=== PATIENT | male | born 1960 | race Caucasian/White ===

== ENCOUNTER 2021-06-03 07:44 | Outpatient (CLI) | payer OTHER, SELFPAY ==
[2021-06-03 08:13] LABS: Hemoglobin A1C 6.9 % (<5.7)
[2021-06-03 08:15] LABS: Alanine Aminotransferase 16 U/L (4-50); Albumin Level 4.8 g/dL (3.5-5.1); Alkaline Phosphatase 61 U/L (38-126); Anion Gap 7 mmol/L (8-16); Aspartate Amino Transferase 28 U/L (17-59); Bilirubin,Total 0.6 mg/dL (0.2-1.3); Blood Urea Nitrogen 15 mg/dL (9-20); Calcium 9.7 mg/dL (8.4-10.2); Carbon Dioxide 30 mmol/L (22-30); Chloride 103 mmol/L (98-107); Cholesterol 128 mg/dL (0-200); Estimated Glomerular Filt Rate 52; Glucose 123 mg/dL (65-110); HDL Direct 54 mg/dL; Potassium 4.9 mmol/L (3.4-5.0); Sodium 140 mmol/L (137-145); Triglycerides 134 mg/dL (<150)
[2021-06-03 08:19] LABS: Hematocrit 43.7 % (42.0-52.0); Hemoglobin 14.3 g/dL (14.0-18.0); Mean Corpuscular HGB Conc 32.7 g/dl (32-36); Mean Corpuscular Hemoglobin 29.9 pg (26-34); Mean Corpuscular Volume 91.2 fl (80-100); Mean Platelet Volume 9.3 fl (7.4-10.4); Platelet Count Result 157 k/mm3 (150-375); Red Blood Count 4.79 M/mm3 (4.6-6.20); Red Cell Distribution Width 12.5 % (11.5-14.5); White Blood Count 5.8 K/mm3 (4.5-10.0)
[2021-06-03 08:27] LABS: LDL Cholesterol Direct 42 mg/dL
[2021-06-03 08:47] LABS: Prostate Specific Antigen 2.1 ng/mL (< OR = 4.0)
[2021-06-03 09:21] LABS: Folic Acid 14.5 ng/mL (2.76->20)
== END 2021-06-03 07:45 | disposition home or self-care (01) ==
PROVIDERS: PCP Physician Assistant; Visit Provider Physician Assistant
DX: E11.9 Type 2 diabetes mellitus without complications (principal); Z12.5 Encounter for screening for malignant neoplasm of prostate; R53.83 Other fatigue
CPT/HCPCS: 36415; 80053; 80061; 82607; 82746; 83036; 84153; 84443; 85027; G0103

== ENCOUNTER 2021-11-22 07:04 | Outpatient (CLI) | payer OTHER, SELFPAY ==
[2021-11-22 07:47] LABS: Alanine Aminotransferase 25 U/L (4-50); Albumin Level 4.7 g/dL (3.5-5.1); Alkaline Phosphatase 99 U/L (38-126); Anion Gap 8 mmol/L (8-16); Aspartate Amino Transferase 27 U/L (17-59); Bilirubin,Total 0.5 mg/dL (0.2-1.3); Blood Urea Nitrogen 22 mg/dL (9-20); Calcium 9.1 mg/dL (8.4-10.2); Carbon Dioxide 27 mmol/L (22-30); Chloride 102 mmol/L (98-107); Estimated Glomerular Filt Rate 56; Glucose 124 mg/dL (65-110); Potassium 4.3 mmol/L (3.4-5.0); Sodium 137 mmol/L (137-145)
[2021-11-22 07:59] LABS: Creatinine Urine 58.1 mg/dL
[2021-11-22 08:03] LABS: Microalbumin Urine Random 11.6 mg/L (0-16.7)
[2021-11-22 08:09] LABS: Hemoglobin A1C 7.1 % (<5.7)
[2021-11-22 08:44] LABS: Folic Acid 9.3 ng/mL (2.76->20); Vitamin B12 > 1000.0 pg/mL (239-931)
== END 2021-11-22 07:05 | disposition home or self-care (01) ==
PROVIDERS: PCP Physician Assistant; Visit Provider Physician Assistant
DX: E53.8 Deficiency of other specified B group vitamins (principal); E11.9 Type 2 diabetes mellitus without complications
CPT/HCPCS: 36415; 80053; 82043; 82607; 82746; 83036

== ENCOUNTER 2022-01-09 00:32 | Day surgery (SDC) | payer OTHER, SELFPAY ==
[2021-12-28 14:40] VITALS: BMI 29.4
[2022-01-09 11:20] VITALS: BP 154/93; PULSE 93; RESP 16; TEMP 36.8; O2SAT 100
[2022-01-09] MEDS: LACTATED RINGERS 1,000 ML 150 ML IV CONT (11:29)
[2022-01-09 11:42] LABS: Glucose Point of Care 137 mg/dl (65-105)
--- NOTE | 2022-01-09 11:55 | P.PNAN_ITS ---
Anes - Initial Pre Proc Eval Procedure: Operation Date: 01/09/22 12:30 Proposed Procedures p Screening Colonoscopy - Yg Peters MD Date/Time: 01/09/22 11:55 Surgeon: Yg Peters MD Pre Op Diagnosis: neoplasm screening Patient Data Age: 61 Gender: M Height: 1.78 m Weight: 92.4 kg Last Vital Signs Temp 98.2 F 01/09/22 11:20 Pulse 93 01/09/22 11:20 Resp 16 01/09/22 11:20 BP 154/93 H 01/09/22 11:20 Pulse Ox 100 01/09/22 11:20 Allergies Allergy/AdvReac Type Severity Reaction Status Date / Time No Known Allergies Allergy Verified 01/09/22 11:19 Home Medications Medication Instructions Recorded Confirmed Type lisinopril 10 mg tablet 10 mg PO DAILY 11/12/20 01/09/22 History allopurinol 100 mg tablet 100 mg PO DAILY #90 tablet 12/09/21 01/09/22 Rx empagliflozin 25 mg tablet 25 mg PO DAILY #90 tablet 12/09/21 01/09/22 Rx fenofibrate 160 mg tablet 160 mg PO DAILY #90 tablet 12/09/21 01/09/22 Rx metformin 1,000 mg tablet 1,000 mg PO BID #180 tablet 12/09/21 01/09/22 Rx rosuvastatin 5 mg tablet 5 mg PO DAILY #90 tablet 12/09/21 01/09/22 Rx semaglutide 7 mg tablet 7 mg PO DAILY #90 tablet 12/09/21 01/09/22 Rx Laboratory Tests 01/09/22 11:31 POC Capillary Glucose 137 mg/dl H mg/dl (65-105) Patient hx anesthesia problems: none Family hx anesthesia problems: none Results Review: All pre-operative results and documents have been reviewed as part of the pre-operative evaluation. [facility] Past Medical History Medical History Diabetes type 2, controlled Family History Family History Grandparent Malignant neoplasm of prostate Social History Social History Smoking status: Never smoker Substance use: never Substance use type: does not use Living arrangements: with family Spiritual care concerns: No Anes - Eval Final PreProcedure Day of Procedure 01/09/22 11:55 Patient weight: overweight Heart: regular rate and rhythm Lungs: clear to auscultation Airway: Mallampati scale class II Neurological: alert and oriented Last oral intake: >/= 8 hours ASA classification: II Emergent: no Anesthetic plan: proceed Anesthesia type and monitoring: general GIVS and standard monitoring Results Review: All pre-operative results and documents have been reviewed as part of the pre-operative evaluation. Informed Consent: The patient's anesthetic plan and its attendant risks and benefits were discussed with the patient/family/POA. Questions were solicited and answers provided to the satisfaction of the patient/family/POA.
--- NOTE | 2022-01-09 11:56 | PM.HPGS ---
History of Present Illness History of Present Illness Consent: Risks, benefits, and alternatives have been discussed and questions answered. Patient agrees to proceed with procedure. Chief complaint: neoplasm screening Narrative: Saúl Graham is a 61 year old male here for screening colonoscopy, last one 10 years ago. Review of Systems Constitutional: Constitutional: Denies headache(s) and Denies weakness Eyes: Eyes: Denies blurry vision ENT: Reports Normal hearing present, Denies headache(s) and Denies neck pain Cardiovascular: Cardiovascular: Denies chest pain and Denies dyspnea Respiratory: Respiratory: Denies dyspnea Gastrointestinal: Gastrointestinal: Reports no additional gastrointestinal complaints Genitourinary: Genitourinary: Denies dysuria Musculoskeletal: Musculoskeletal: Denies neck pain Integumentary/Breasts: Skin/Breast: Denies dry skin Neurologic: Reports Normal hearing present, Denies headache(s) and Denies weakness Psychiatric: Psychiatric: Denies anxiety Endocrine: Endocrine: Denies change in body appearance Hematologic/Lymphatic: Hematologic/Lymphatic: Denies easy bleeding Allergic/Immunologic: Allergic/Immunologic: Denies urticaria PMF Past Medical History Medical History (Updated 01/09/22 @ 11:57 by Yg Peters MD) Colon cancer screening Diabetes type 2, controlled Family History Family History Grandparent Malignant neoplasm of prostate Social History Social History Smoking status: Never smoker Substance use: never Substance use type: does not use Living arrangements: with family Spiritual care concerns: No Meds Home Medications and Allergies Home Medications Medication Instructions Recorded Confirmed Type lisinopril 10 mg tablet 10 mg PO DAILY 11/12/20 01/09/22 History allopurinol 100 mg tablet 100 mg PO DAILY #90 tablet 12/09/21 01/09/22 Rx empagliflozin 25 mg tablet 25 mg PO DAILY #90 tablet 12/09/21 01/09/22 Rx fenofibrate 160 mg tablet 160 mg PO DAILY #90 tablet 12/09/21 01/09/22 Rx metformin 1,000 mg tablet 1,000 mg PO BID #180 tablet 12/09/21 01/09/22 Rx rosuvastatin 5 mg tablet 5 mg PO DAILY #90 tablet 12/09/21 01/09/22 Rx semaglutide 7 mg tablet 7 mg PO DAILY #90 tablet 12/09/21 01/09/22 Rx Allergies Allergy/AdvReac Type Severity Reaction Status Date / Time No Known Allergies Allergy Verified 01/09/22 11:19 Vital Signs Vital Signs - 24 hr 01/09/22 11:20 Temperature 98.2 F Pulse Rate 93 Respiratory Rate 16 Blood Pressure 154/93 H Pulse Oximetry 100 Exam Const: General: comfortable and no acute distress HENMT: General nose exam: Normal nares present Eyes: General: appearance normal, both eyes and all related structures Neck: Neck: no JVD Resp: Auscultation: clear to auscultation bilaterally Cardio: Rate: regular rate Rhythm: regular rhythm GI: Inspection: non-distended GI Palp: Yes Soft to palpation Skin: General skin exam: normal color Neuro: General: gait normal Speech: normal speech Extrem: General: normal to inspection Psych: Mental Status: mental status grossly normal Assessment and Plan Assessment and plan (1) Colon cancer screening: Code(s): Z12.11 - Encounter for screening for malignant neoplasm of colon Status: Acute Assessment and Plan: colonoscopy
[2022-01-09 12:19] VITALS: BP 106/74; PULSE 89; RESP 20; O2SAT 98
[2022-01-09 12:29] VITALS: BP 121/89; PULSE 94; RESP 20; O2SAT 99
[2022-01-09 12:39] VITALS: BP 137/85; PULSE 85; RESP 20; O2SAT 99
== END 2022-01-09 13:03 | disposition home or self-care (01) ==
PROVIDERS: PCP Physician Assistant; Visit Provider Internal Medicine Gastroenterology
PROC: 0DJD8ZZ Inspection of Lower Intestinal Tract, Via Natural or Artificial Opening Endoscopic (ICD-10-PCS; CPT 45378; principal; 2022-01-09 12:30)
DX: Z12.11 Encounter for screening for malignant neoplasm of colon (principal); D12.8 Benign neoplasm of rectum; K64.8 Other hemorrhoids; E11.9 Type 2 diabetes mellitus without complications; Z79.84 Long term (current) use of oral hypoglycemic drugs
CPT/HCPCS: 45385; 82948; 88305; J2704; J7120

== ENCOUNTER 2022-06-07 07:09 | Outpatient (CLI) | payer OTHER, SELFPAY ==
[2022-06-07 08:16] LABS: Hematocrit 42.9 % (42.0-52.0); Hemoglobin 14.2 g/dL (14.0-18.0); Mean Corpuscular HGB Conc 33.1 g/dl (32-36); Mean Corpuscular Volume 90.5 fl (80-100); Mean Platelet Volume 9.6 fl (7.4-10.4); Platelet Count Result 197 k/mm3 (150-375); Red Blood Count 4.74 M/mm3 (4.6-6.20); Red Cell Distribution Width 12.6 % (11.5-14.5); White Blood Count 6.1 K/mm3 (4.5-10.0)
[2022-06-07 08:17] LABS: Alanine Aminotransferase 14 U/L (6-50); Albumin Level 4.9 g/dL (3.5-5.1); Alkaline Phosphatase 75 U/L (38-126); Anion Gap 11 mmol/L (8-16); Aspartate Amino Transferase 23 U/L (17-59); Bilirubin,Total 0.5 mg/dL (0.2-1.3); Blood Urea Nitrogen 21 mg/dL (9-20); Calcium 9.9 mg/dL (8.4-10.2); Carbon Dioxide 28 mmol/L (22-30); Chloride 100 mmol/L (98-107); Cholesterol 129 mg/dL (0-200); Estimated Glomerular Filt Rate > 60; Glucose 112 mg/dL (65-110); HDL Direct 52 mg/dL; Hemoglobin A1C 7.3 % (<5.7); Potassium 4.4 mmol/L (3.4-5.0); Sodium 139 mmol/L (137-145); Triglycerides 203 mg/dL (<150)
[2022-06-07 08:28] LABS: LDL Cholesterol Direct 37 mg/dL
[2022-06-07 08:31] LABS: Creatinine Urine 86.7 mg/dL
[2022-06-07 08:36] LABS: MALB Creatinine Ratio 22.4 mg/g (0-30); Microalbumin Urine Random 19.4 mg/L (0-16.7)
== END 2022-06-07 07:10 | disposition home or self-care (01) ==
LOC: ANHLAB 07:10
PROVIDERS: PCP Physician Assistant; Visit Provider Physician Assistant
DX: R53.83 Other fatigue (principal); E11.9 Type 2 diabetes mellitus without complications; Z12.5 Encounter for screening for malignant neoplasm of prostate
CPT/HCPCS: 36415; 80053; 80061; 82043; 83036; 84153; 84443; 85027; G0103

== ENCOUNTER 2022-08-01 15:02 | Outpatient (CLI) | payer OTHER, SELFPAY ==
--- NOTE | ~2022-08-01 | CT_ITS ---
EXAMINATION: CT abdomen pelvis wo con DATE: 08/01/2022 15:21 INDICATION: Renal stones TECHNIQUE: Computed tomography (CT) of the abdomen and pelvis was performed without intravenous contr ast. The dose-length product was 881.10 mGy-cm. Automated exposure control and iterative reconstructi on technique were employed. COMPARISON: No prior studies for comparison. FINDINGS: Lung bases are unremarkable. Heart size normal. No significant pleural or pericardial effus ion. No significant vascular abnormality. No lymphadenopathy. There are multiple bilateral renal ston es. No left hydronephrosis or ureteral stone. There is a proximal right ureteral stone measuring 7 mm with moderate hydroureteronephrosis. There are bilateral inguinal hernias containing fat. Colonic di verticulosis without diverticulitis. The liver, spleen, pancreas, adrenal glands are unremarkable. There is a duodenal diverticulum. Prost ate gland is enlarged. Moderate lumbar spondylosis. No acute osseous abnormality. No free air or free fluid. IMPRESSION: 1. Proximal right ureteral stone at the L4 level measuring 7 mm with moderate hydronephrosis. 2: Bilateral nephrolithiasis. 3: Bilateral fat-containing inguinal hernias. 4: Duodenal diverticulum. Reviewed, dictated and finalized at location B. IMPRESSION: 1. Proximal right ureteral stone at the L4 level measuring 7 mm with moderate h ydronephrosis. 2: Bilateral nephrolithiasis. 3: Bilateral fat-containing inguinal hernias. 4: Duodenal diverticulum.
== END 2022-08-01 15:03 | disposition home or self-care (01) ==
PROVIDERS: PCP Physician Assistant; Visit Provider Physician Assistant
DX: N20.0 Calculus of kidney (principal); K40.90 Unilateral inguinal hernia, without obstruction or gangrene, not specified as recurrent; K57.10 Diverticulosis of small intestine without perforation or abscess without bleeding
CPT/HCPCS: 74176

== ENCOUNTER 2022-08-02 11:10 | Emergency (ER) | payer OTHER, SELFPAY ==
[2022-08-02 11:14] VITALS: BP 159/90; PULSE 96; RESP 14; TEMP 35.9; O2SAT 100
[2022-08-02 11:35] LABS: Basophils Percent Auto 0.4 % (0.2-1.2); Eosinophils Absolute Auto 0.1 K/mm3 (0-0.3); Eosinophils Percent Auto 1.6 % (0-4.4); Hematocrit 41.2 % (42.0-52.0); Hemoglobin 13.6 g/dL (14.0-18.0); Immature Granulocyte Absolute 0.09 K/mm3 (0.00-0.031); Immature Granulocyte Percent A 1.1 % (0-0.5); Lymphocytes Absolute Auto 1.74 K/mm3 (0.9-3.2); Lymphocytes Percent Auto 21.6 % (18.3-44.2); Mean Corpuscular Hemoglobin 29.4 pg (26-34); Mean Corpuscular Volume 89.2 fl (80-100); Monocytes Absolute Auto 0.6 K/mm3 (0.1-0.6); Monocytes Percent Auto 7.4 % (2.6-8.5); Neutrophils Absolute Auto 5.5 K/mm3 (1.3-6.7); Neutrophils Percent Auto 67.9 % (45.5-73.1); Platelet Count Result 284 k/mm3 (150-375); Red Blood Count 4.62 M/mm3 (4.6-6.20); Red Cell Distribution Width 12.3 % (11.5-14.5); White Blood Count 8.1 K/mm3 (4.5-10.0)
[2022-08-02 11:41] LABS: Add Urine Microscopic? YES; Appearance Urine Clear (Clear); Bilirubin Urine Negative (Negative); Blood Urine 2+ (Negative); Color Urine Yellow (Yellow); Glucose Urine UA 3+ mg/dL (Negative); Ketones Urine Negative (Negative); Leukocyte Esterase Ur Negative LEU/UL (Negative); Nitrate Urine Negative (Negative); Protein Urine Negative (Negative); Specific Grav Ur 1.018 (1.001-1.035); Urobilinogen Urine Negative mg/dL (<2.0); WBC Urine 0-3 /hpf
[2022-08-02 11:47] LABS: Alanine Aminotransferase 16 U/L (6-50); Alkaline Phosphatase 86 U/L (38-126); Anion Gap 18 mmol/L (8-16); Aspartate Amino Transferase 25 U/L (17-59); Bilirubin,Total 0.4 mg/dL (0.2-1.3); Blood Urea Nitrogen 31 mg/dL (9-20); Calcium 10.2 mg/dL (8.4-10.2); Carbon Dioxide 26 mmol/L (22-30); Chloride 99 mmol/L (98-107); Estimated CRCL calculation 33 ml/min; Estimated Glomerular Filt Rate 31; Glucose 114 mg/dL (65-110); Potassium 4.9 mmol/L (3.4-5.0); Sodium 143 mmol/L (137-145)
--- NOTE | 2022-08-02 12:43 | ED.GENADULT ---
HPI - General Adult General Chief complaint: Abdominal Pain Stated complaint: kidney stone Time Seen by Provider: 08/02/22 11:54 History of Present Illness HPI narrative: 62-year-old male with history of kidney stones with prior lithotripsy presents to the emergency department for evaluation of persistent right flank pain that has been ongoing for approximately the last 10 to 11 days. Patient did have follow-up with his primary care physician and had an outpatient CT scan confirming the a right ureteral calculi of 7 mm. Patient states he has had some intermittent pain but has been taking ibuprofen for pain control. Patient has not been taking Flomax. Patient states he has had some intermittent nausea and vomiting has had some decreased p.o. intake. Patient states he is still making urine to try to keep up on his fluid intake. Patient denies any other kidney issues. Related Data Home Medications Medication Instructions Recorded Confirmed lisinopril 10 mg tablet 10 mg PO DAILY 11/12/20 02/24/22 Allergies Allergy/AdvReac Type Severity Reaction Status Date / Time No Known Allergies Allergy Verified 08/02/22 11:44 Review of Systems Review of Systems: CONSTITUTIONAL: Denies fever, chills, or sweats. EYES: Denies visual changes, redness, or discharge. ENT: Denies rhinorrhea, congestion, sore throat, or otalgia. CARDIOVASCULAR: Denies chest pain, palpitations, or edema. RESPIRATORY: Denies cough or dyspnea. GASTROINTESTINAL: See HPI GENITOURINARY: Denies dysuria or hematuria. SKIN: Denies rash or itching. MUSCULOSKELETAL: Denies back pain, joint pain, or myalgia. NEUROLOGIC: Denies headache, numbness, or weakness. [facility] Past Medical History Medical History Colon cancer screening Diabetes type 2, controlled Family History Family History Grandparent Malignant neoplasm of prostate Social History Social History Smoking status: Never smoker Substance use: never Substance use type: does not use Spiritual care concerns: No Exam Narrative: APPEARANCE: Well appearing, no pain, no distress, well-nourished. HEAD: normocephalic, atraumatic. EYES: PERRLA/EOMI, conjunctivae clear. NOSE: Normal no drainage NECK: Supple. No adenopathy, no masses. RESPIRATORY: Airway patent, respirations nonlabored. Clear to auscultation bilaterally, no rales, rhonchi, wheezing. CARDIOVASCULAR: Regular rate and rhythm without murmurs rubs or gallops. ABDOMINAL: Soft, nontender, nondistended, normal bowel sounds MUSCULOSKELETAL: Mild right flank tenderness to palpation NEURO: Alert. Cranial nerves II through XII intact. Grossly intact SKIN: Warm, dry. Normal Color Course Course Emergency Course: Patient was treated with IV fluids due to very mild increase and his creatinine. Patient's baseline creatinine seems to be between 1.4 and 1.2. Today's was 2.2. Patient does report decreased p.o. intake. Patient was rehydrated in the emergency department. Patient denies any complaints at this time. No evidence of urinary tract infection. Patient will be discharged with Flomax and some medications for pain control. Patient also be provided urology follow-up. Vital Signs Vital signs: Vital Signs Temperature 96.7 F L 08/02/22 11:14 Pulse Rate 96 08/02/22 11:14 Respiratory Rate 14 08/02/22 11:14 Blood Pressure 159/90 H 08/02/22 11:14 Pulse Oximetry 100 08/02/22 11:14 Oxygen Delivery Room Air 08/02/22 11:14 Temperature 96.7 F L 08/02/22 11:14 Pulse Rate 96 08/02/22 11:14 Respiratory Rate 14 08/02/22 11:14 Blood Pressure 159/90 H 08/02/22 11:14 Pulse Oximetry 100 08/02/22 11:14 Oxygen Delivery Room Air 08/02/22 11:14 Medical Decision Making Vital Signs Vital Signs: Vital Signs Temperature 96.7 F L 08/02/22
[2022-08-02] MEDS: SODIUM CHLORIDE 0.9% IV 1,000 ML 999 ML IV CONT (12:49)
[2022-08-02] MEDS: TAMSULOSIN HCL 0.4 MG CAPSULE PO (13:07)
== END 2022-08-02 14:07 | disposition home or self-care (01) ==
PROVIDERS: Emergency Medicine; Emergency Provider Emergency Medicine; PCP Physician Assistant
DX: N20.1 Calculus of ureter (principal); E11.9 Type 2 diabetes mellitus without complications
CPT/HCPCS: 36415; 80053; 81001; 85025; 96360; 99283; A9270; J7030

== ENCOUNTER 2022-08-03 14:38 | Outpatient (CLI) | payer OTHER, SELFPAY ==
--- NOTE | ~2022-08-03 | XR_ITS ---
XR abdomen/kub 1V 08/03/2022 15:03 Indication: Right ureteral stone Procedure: KUB Comparison: No prior studies for comparison. Findings: There are multiple bilateral renal stones. There is calcification overlying the right sacro iliac joint, suspicious for ureteral stone. Bowel gas pattern is nonobstructive. No acute osseous abn ormality. Impression: 1: Possible distal right ureteral stone overlying the SI joint. 2: Bilateral nephrolithiasis. Reviewed, dictated and finalized at location B. Impression: 1: Possible distal right ureteral stone overlying the SI joint. 2: Bilateral nephrolithiasis.
== END 2022-08-03 14:39 | disposition home or self-care (01) ==
PROVIDERS: PCP Physician Assistant; Visit Provider Urology
DX: N20.2 Calculus of kidney with calculus of ureter (principal)
CPT/HCPCS: 74018

== ENCOUNTER 2022-08-11 14:51 | Outpatient (CLI) | payer OTHER, SELFPAY ==
--- NOTE | 2022-08-11 14:55 | ECG_ITS ---
Measurements Intervals [place] Rate: 83 P: -9 NJ: 137 QRS: -44 QRSD: 112 T: 15 QT: 356 QTc: 419 Interpretive Statements SINUS RHYTHM LEFT AXIS DEVIATION INCOMPLETE LEFT BUNDLE BRANCH BLOCK DELAYED PRECORDIAL R/S TRANSITION BORDERLINE T WAVE ABNORMALITY- INFERIOR LEADS ABNORMAL ECG NO PREVIOUS ECG AVAILABLE FOR COMPARISON Electronically Signed On 08-11-2022 15:38:35 CDT by Elijah Frank D.O.
[2022-08-11 15:44] LABS: Anion Gap 16 mmol/L (8-16); Blood Urea Nitrogen 27 mg/dL (9-20); Calcium 9.8 mg/dL (8.4-10.2); Carbon Dioxide 27 mmol/L (22-30); Chloride 100 mmol/L (98-107); Estimated Glomerular Filt Rate 41; Glucose 138 mg/dL (65-110); Potassium 4.3 mmol/L (3.4-5.0); Sodium 143 mmol/L (137-145)
== END 2022-08-11 14:52 | disposition home or self-care (01) ==
PROVIDERS: Anesthesiology; PCP Physician Assistant; Visit Provider Urology
DX: N20.1 Calculus of ureter (principal); I10 Essential (primary) hypertension; E11.9 Type 2 diabetes mellitus without complications; Z01.818 Encounter for other preprocedural examination; I44.7 Left bundle-branch block, unspecified
CPT/HCPCS: 36415; 80048; 87086; 93005

== ENCOUNTER 2022-08-15 01:28 | Day surgery (SDC) | payer OTHER, SELFPAY ==
--- NOTE | 2022-08-11 14:40 | PC.NURSE ---
Report to the Outpatient Waiting Room, entrance under the green pavilion located off [facility], at time _1230 on date _08/15/22 . Planned Procedure Time: _1430 . Time changes happen often and if your time is changed the preop area will call you the afternoon before. - You and your visitor will be asked to self-screen and do not enter if you have any COVID symptoms. - We encourage only one visitor and NO visitors under age 16 are allowed at this time. Your visitor will receive communication by the phone number that is given day of service. - The patient visitor is requested to social distance or may leave the building when not with patient due to restrictions. - A mask is required within the hospital. Patients may have clear liquids (water, carbonated beverages, clear teas, apple juice) until 3 hours prior to surgery with a maximum of 20 ounces. - No food from midnight until time of surgery - Infants may have breast milk until 4 hours before surgery, formula 6 hours prior to surgery. - Children will be allowed to drink immediately following surgery. If applicable, please bring a bottle or sippy cup to assist with drinking. Juice, water, soda, and popsicles are readily available. For infants on formula, please bring formula the day of surgery. Pacifiers are allowed. Take the following medications with a SIP of water the morning of surgery: ___NONE Medications to discontinue per physician ALL VITAMINS 3 DAYS PRE OP Date to take last dose____08/11/22 Please no make-up, nail georgian, hairspray, perfume, deodorant, or body powder the day of surgery. No jewelry (including any body piercings) or valuables the day of surgery, leave them at home. Please take a shower or bath the night before, or the morning of, surgery with an antibacterial soap. Wear comfortable, loose fitting clothing. Children are encouraged to wear pajamas. - Jewelry must be removed prior to entering the operating room. Rings and piercings that are not removed may be cut off. - The hospital will not accept responsibility for valuables. - Please leave all valuables, including medications, at home the day of surgery. If you are going home after surgery, a licensed milk driver must drive you home. - NO public transportation without another adult. - We recommend that an adult stay with you for 24 hours following discharge. - We also recommend that you do not drive, make important decision, drink alcoholic beverages, or take any drugs that were not prescribed by your health care provider for at least 24 hours after your discharge time. For Pediatric surgeries, we recommend two adults accompany the child home. Follow any additional instructions given to you from your surgeon. If you or anyone in your household have experienced Covid symptoms in the past week, please notify your surgeon or the nurse liaison at the phone number below for possible testing. Telephone instructions given to __PATIENT and asked if any additional questions and then verbalized understanding. Patient advised to call surgeon office or pre surgery nurse liaison [phone] if any additional questions.
[2022-08-11 14:56] VITALS: BMI 29.4
[2022-08-15] VITALS (9 sets, daily range): BP systolic 100–145; BP diastolic 67–88; PULSE 67–80; RESP 10–20; TEMP 36.2–36.3; O2SAT 96–100
--- NOTE | ~2022-08-15 | XR_ITS ---
EXAMINATION: XR retrograde pyelogram RT DATE: 08/15/2022 14:10 SLOT KEY PERSON INDICATION: cysto, RT RETROgrade, stone extraction . TECHNIQUE: 3 fluoroscopic images of the right abdomen and pelvis were obtained during cystoscopy, rig ht retrograde pyelography and stone extraction performed by the surgeon. I was not present in the ope rating room. Fluoroscopy exposure time was 14.1 seconds. DAP [id number] [id number]. COMPARISON: X-ray abdomen 08/03/2022 FINDINGS: Cannulation of the right collecting system which appears grossly normal. Catheter and wire access int o the upper collecting system. Known bilateral nephroliths are not well seen in these fluoroscopic vi ews. IMPRESSION: Fluoroscopic documentation of cystoscopy and right retrograde pyelography with stone extraction. Plea se refer to the operative note for complete procedural details . Reviewed, dictated and finalized at location K. KEY PERSON IMPRESSION: Fluoroscopic documentation of cystoscopy and right retrograde pyelography with stone extraction. Please refer to the operative note for complete procedural de tails .
--- NOTE | 2022-08-15 13:03 | P.PNAN_ITS ---
Anes - Initial Pre Proc Eval Procedure: Operation Date: 08/15/22 14:30 Proposed Procedures p Cystoscopy, Right Ureteroscopy, Possible Right Retrograde Pyelogram, Possible Right Stone Extraction, Possible Right Stent Placement, Possible Holmium Laser - Brian Balderas MD Date/Time: 08/15/22 13:03 Surgeon: Brian Balderas MD Pre Op Diagnosis: right ureteral kidney stones Patient Data Age: 62 Gender: M Height: 1.78 m Weight: 92.99 kg Allergies Allergy/AdvReac Type Severity Reaction Status Date / Time No Known Allergies Allergy Verified 08/11/22 14:31 Home Medications Medication Instructions Recorded Confirmed Type lisinopril 10 mg tablet 10 mg PO DAILY 11/12/20 08/11/22 History allopurinol 100 mg tablet 100 mg PO DAILY #90 tabs 12/09/21 08/11/22 Rx empagliflozin 25 mg tablet 25 mg PO DAILY #90 tabs 12/09/21 08/11/22 Rx (Jardiance) fenofibrate 160 mg tablet 160 mg PO DAILY #90 tabs 12/09/21 08/11/22 Rx metformin 1,000 mg tablet 1,000 mg PO BID #180 tabs 12/09/21 08/11/22 Rx rosuvastatin 5 mg tablet 5 mg PO DAILY #90 tabs 12/09/21 08/11/22 Rx semaglutide 7 mg tablet (Rybelsus) 7 mg PO DAILY #90 tabs 12/09/21 08/11/22 Rx hydrocodone 5 mg-acetaminophen 325 1 tablet PO Q8H PRN pain #14 tabs 08/02/22 08/11/22 Rx mg tablet tamsulosin 0.4 mg capsule (Flomax) 0.4 mg PO DAILY #20 caps 08/02/22 08/11/22 Rx cyanocobalamin (vitamin B-12) 1,000 mcg PO DAILY 08/11/22 08/11/22 History 1,000 mcg tablet vitamin E 400 mg PO DAILY 08/11/22 08/11/22 History Patient hx anesthesia problems: none Family hx anesthesia problems: none Results Review: All pre-operative results and documents have been reviewed as part of the pre- operative evaluation. [facility] Past Medical History Medical History (Updated 08/15/22 @ 13:04 by Ramiro Perry MD) Colon cancer screening Diabetes type 2, controlled HTN (hypertension) Family History Family History Grandparent Malignant neoplasm of prostate Social History Social History Smoking status: Never smoker Substance use: never Substance use type: does not use Living arrangements: with family Spiritual care concerns: No Anes - Eval Final PreProcedure Day of Procedure 08/15/22 13:03 Patient weight: obese Heart: regular rate and rhythm Lungs: clear to auscultation Airway: Mallampati scale class II Neurological: alert and oriented Last oral intake: >/= 8 hours ASA classification: II Emergent: no Anesthetic plan: proceed Anesthesia type and monitoring: general LMA and standard monitoring Results Review: All pre-operative results and documents have been reviewed as part of the pre- operative evaluation. Informed Consent: The patient's anesthetic plan and its attendant risks and benefits were discussed with the patient/family/POA. Questions were solicited and answers provided to the satisfaction of the patient/family/POA.
[2022-08-15 13:06] LABS: Glucose Point of Care 114 mg/dl (65-105)
[2022-08-15] MEDS: LACTATED RINGERS 1,000 ML 30 ML IV CONT (13:21)
--- NOTE | 2022-08-15 13:47 | WPDHPUPDATE1 ---
History and Physical Update Update Date/Time: 08/15/22 13:47 History and Physical has been reviewed, including an updated exam of the patient. There are NO changes in the patient's condition. Risks, benefits, and alternatives have been discussed and questions answered. Patient agrees to proceed with procedure.
[2022-08-15] MEDS: ceFAZolin 2 GM/D5W 50 ML 2 GM/50 ML BAG IVPB (13:58)
[2022-08-15] MEDS: LIDOCAINE HCL 2% GEL UROJET 10 ML PKG MUCOUS MEM (14:20)
--- NOTE | 2022-08-15 14:21 | W.PM.PROC2 ---
Procedure Note - Detailed Date of Procedure 08/15/22 Pre-op Diagnosis right ureteral kidney stones Post-op Diagnosis Same (Recent passage of stone into bladder) Procedure Performed Cystoscopy, right retrograde pyelogram, right ureteroscopy, extraction of right ureteral calculus which passed into bladder Surgeon Brian Balderas MD Anesthesia General Description of Procedure Patient is taken to the operative suite correctly identified. Once anesthesia was obtained was placed in dorsal lithotomy position and prepped and draped usual sterile fashion. Twenty-two Bangladeshi scope inserted the bladder. He has some mild lateral lobe hypertrophy. The bladder itself was without any evidence of tumors. The right ureteral orifice is red nature. There was a stone that is visualized sitting in the bladder. We went ahead and extracted then sent in for analysis. It measured about 7 mm. Pyelogram was then performed. I did not see any residual ureteral stones we did proceed with ureteroscopy to make sure that we were not missing 1. Flexible ureteral scope was inserted into the orifice and advanced all the way to the kidney. The kidney was also inspected. There were no ureteral stones. He has 3 calices that have stones that are working their way into the actual collecting system. There were still covered with mucosa. At this point we did not proceed with management of these. Scope was removed. Since was minimal instrumentation I did not leave a stent. 2% viscous lidocaine was inserted urethra patient is taken recovery stable condition. Will plan on a KUB in 6 months time. Drains No Packing No Pathology Yes Complications No immediate complications Condition Stable Disposition PACU
[2022-08-15 14:32] LABS: Glucose Point of Care 109 mg/dl (65-105)
--- NOTE | 2022-08-15 17:07 | SUR.PHASEII ---
1630 - pt ready for discharge. waiting for ride.
== END 2022-08-15 17:28 | disposition home or self-care (01) ==
PROVIDERS: PCP Physician Assistant; Visit Provider Urology
PROC: (CPT 52352; principal; 2022-08-15 14:30)
DX: N21.0 Calculus in bladder (principal); E11.9 Type 2 diabetes mellitus without complications; I10 Essential (primary) hypertension; Z79.84 Long term (current) use of oral hypoglycemic drugs; E66.9 Obesity, unspecified; Z68.29 Body mass index [BMI] 29.0-29.9, adult
CPT/HCPCS: 52351; 74420; 82365; 82948; 88300; A9270; C1758; C1769; J0690; J1100; J2405; J2704; J3010; J7120

== ENCOUNTER 2022-11-30 07:06 | Outpatient (CLI) | payer OTHER, SELFPAY ==
[2022-11-30 07:46] LABS: Hemoglobin A1C 8.2 % (<5.7)
[2022-11-30 07:47] LABS: Potassium 4.9 mmol/L (3.4-5.0)
[2022-11-30 07:53] LABS: Alanine Aminotransferase 21 U/L (6-50); Alkaline Phosphatase 69 U/L (38-126); Anion Gap 8 mmol/L (8-16); Aspartate Amino Transferase 26 U/L (17-59); Bilirubin,Total 0.6 mg/dL (0.2-1.3); Blood Urea Nitrogen 21 mg/dL (9-20); Calcium 9.5 mg/dL (8.4-10.2); Carbon Dioxide 30 mmol/L (22-30); Chloride 101 mmol/L (98-107); Estimated Glomerular Filt Rate 48; Glucose 151 mg/dL (65-110); Sodium 139 mmol/L (137-145)
== END 2022-11-30 07:07 | disposition home or self-care (01) ==
LOC: ANHLAB 07:07
PROVIDERS: PCP Physician Assistant; Visit Provider Physician Assistant
DX: E11.9 Type 2 diabetes mellitus without complications (principal)
CPT/HCPCS: 36415; 80053; 83036

== ENCOUNTER 2023-02-05 09:14 | Outpatient (CLI) | payer OTHER, SELFPAY ==
--- NOTE | ~2023-02-05 | XR_ITS ---
EXAMINATION: XR abdomen/kub 1V DATE: 02/05/2023 09:27 INDICATION: Right ureteral stone. TECHNIQUE: A supine view of the abdomen on 2 radiographs was obtained. COMPARISON: CT abdomen and pelvis 08/01/2022 FINDINGS: There are multiple stones in right kidney measuring up to 5 mm. There are 3 stones in left kidney measuring up to 9 mm. IMPRESSION: 1. Bilateral kidney stones. Reviewed, dictated and finalized at location A. IMPRESSION: 1. Bilateral kidney stones.
== END 2023-02-05 09:15 | disposition home or self-care (01) ==
PROVIDERS: PCP Physician Assistant; Visit Provider Urology
DX: N20.1 Calculus of ureter (principal)
CPT/HCPCS: 74018

== ENCOUNTER 2023-06-08 07:03 | Outpatient (CLI) | payer OTHER, SELFPAY ==
[2023-06-08 08:13] LABS: Basophils Percent Auto 0.6 % (0.2-1.2); Eosinophils Absolute Auto 0.2 K/mm3 (0-0.3); Hematocrit 43.5 % (42.0-52.0); Hemoglobin 14.5 g/dL (14.0-18.0); Immature Granulocyte Absolute 0.02 K/mm3 (0.00-0.031); Immature Granulocyte Percent A 0.4 % (0-0.5); Lymphocytes Absolute Auto 1.77 K/mm3 (0.9-3.2); Lymphocytes Percent Auto 33.3 % (18.3-44.2); Mean Corpuscular HGB Conc 33.3 g/dl (32-36); Mean Corpuscular Hemoglobin 29.8 pg (26-34); Mean Corpuscular Volume 89.5 fl (80-100); Mean Platelet Volume 9.4 fl (7.4-10.4); Monocytes Absolute Auto 0.4 K/mm3 (0.1-0.6); Monocytes Percent Auto 7.3 % (2.6-8.5); Neutrophils Absolute Auto 2.9 K/mm3 (1.3-6.7); Neutrophils Percent Auto 54.4 % (45.5-73.1); Platelet Count Result 178 k/mm3 (150-375); Red Blood Count 4.86 M/mm3 (4.6-6.20); Red Cell Distribution Width 12.3 % (11.5-14.5); White Blood Count 5.3 K/mm3 (4.5-10.0)
[2023-06-08 08:22] LABS: Hemoglobin A1C 8.6 % (<5.7)
[2023-06-08 08:23] LABS: Alanine Aminotransferase 20 U/L (6-50); Albumin Level 4.8 g/dL (3.5-5.1); Alkaline Phosphatase 73 U/L (38-126); Anion Gap 7 mmol/L (8-16); Aspartate Amino Transferase 27 U/L (17-59); Bilirubin,Total 0.4 mg/dL (0.2-1.3); Blood Urea Nitrogen 24 mg/dL (9-20); Calcium 9.9 mg/dL (8.4-10.2); Carbon Dioxide 30 mmol/L (22-30); Chloride 101 mmol/L (98-107); Cholesterol 166 mg/dL (0-200); Estimated Glomerular Filt Rate > 60; Glucose 145 mg/dL (65-110); HDL Direct 45 mg/dL; Potassium 4.2 mmol/L (3.4-5.0); Sodium 138 mmol/L (137-145); Triglycerides 328 mg/dL (<150)
[2023-06-08 08:24] LABS: Creatinine Urine 67.3 mg/dL
[2023-06-08 08:30] LABS: MALB Creatinine Ratio 18.6 mg/g (0-30); Microalbumin Urine Random 12.5 mg/L (0-16.7)
[2023-06-08 08:34] LABS: LDL Cholesterol Direct 67 mg/dL
[2023-06-08 08:53] LABS: Prostate Specific Antigen 2.4 ng/mL (< OR = 4.0)
[2023-06-08 09:30] LABS: Folic Acid > 20.0 ng/mL (2.76->20)
== END 2023-06-08 07:04 | disposition home or self-care (01) ==
LOC: ANHLAB 07:04
PROVIDERS: PCP Physician Assistant; Visit Provider Physician Assistant
DX: R53.83 Other fatigue (principal); Z12.5 Encounter for screening for malignant neoplasm of prostate; E11.9 Type 2 diabetes mellitus without complications
CPT/HCPCS: 36415; 80053; 80061; 82043; 82607; 82746; 83036; 84153; 84443; 85025; G0103

== ENCOUNTER 2023-07-31 07:42 | Outpatient (CLI) | payer OTHER, SELFPAY ==
--- NOTE | ~2023-07-31 | XR_ITS ---
Right Shoulder Technique: AP and scapular Y views were obtained. Clinical History: Pain Findings: No fracture or dislocation is seen. Osseous alignment is anatomic. There is moderate AC anuradha nt degenerative change. Glenohumeral joint is intact. Calcification at the distal supraspinatus tendo n region is consistent with calcific tendinitis. Impression: Calcific tendinitis of the distal supraspinatus tendon. Moderate AC joint degenerative change. Reviewed, dictated and finalized at location . Impression: Calcific tendinitis of the distal supraspinatus tendon. Moderate AC joint degenerative change.
== END 2023-07-31 07:43 | disposition home or self-care (01) ==
PROVIDERS: PCP Physician Assistant; Visit Provider Physician Assistant
DX: M75.31 Calcific tendinitis of right shoulder (principal); M24.111 Other articular cartilage disorders, right shoulder
CPT/HCPCS: 73030

== ENCOUNTER 2023-09-25 13:00 | Outpatient (RCR) | payer OTHER, SELFPAY ==
--- NOTE | 2023-08-28 08:47 | OPREHPOC ---
Outpatient Therapy Plan of Care This is a Multidisciplinary Plan of Care that may contain components documented by all disciplines (PT, OT, and ST.) PT Problem 1 PT Problem #1 Knowledge Deficit PT Goal 1 Goal Pt to be IND with issued HEP Target Visit 4 PT Problem 2 PT Problem #2 Pain PT Goal 1 Goal Pt to report R shoulder pain no greater than 3/10 in the last week. Target Visit 4 PT Goal 2 Goal Pt to report 75% improvement in overall symptoms. Target Visit 4 PT Problem 3 PT Problem #3 Impaired Range of Motion PT Goal 1 Goal Pt to improve active shoulder flexion to 160 deg without an increase in pain Target Visit 4 PT Goal 2 Goal Pt to improve active shoulder abduction to 150 deg Target Visit 4 PT Goal 1 Goal Pt to improve UEFI from 68/80 to 75/80 Target Visit 4
--- NOTE | 2023-08-28 08:47 | PTOPEVAL1 ---
Assessment and note entered by Waldo Salmon, PT, DPT Evaluation Information Assessment Status Evaluation Diagnosis R shoulder pain (M75.31) Onset 1 year Subjective Information Pt states he is getting intermittent shoulder pain that will make him up in the night. He reports also having some carpel tunnel issues on the same time. He feels like his ROM is limited while getting dressed, putting a coat on, and moving around in a weird way. Reported Pain Level Pain Score 0: Self Report Assessment PT Clinical Summary Pt reports to therapy today for his initial evaluation with a diagnosis of R shoulder pain with tendonitis calcification. Today he demonstrates decreased active shoulder motion on the R compared to the L, pain with active ROM, and a mild decrease in R shoulder strength when compared to the L shoulder. He demonstrates mild forward rounded of his shoulders caitlyn. Skilled therapy services are indicated to address the deficits noted above, to improve posture and scapular mechanics, and to return to PLOF. Plan of Care Interventions Electrical Stimulation,Hot Pack/Cold Pack,Manual Therapy,Neuro Re-education,Patient/Caregiver Educati,Therapeutic Activities,Therapeutic Exercise,Ultrasound PT Services Indicated Yes Treatment Frequency and 1x/wk for 4 visits Duration These treatments will address the objective and functional deficits as defined above. The patient will be advanced safely and appropriately in order for the patient to progress towards his/her prior level of function. Additional exercises will be introduced and as well as a comprehensive home exercise program upon discharge, if needed, ?to ensure carryover of functional gains achieved in the clinic. This treatment plan has been reviewed and agreement upon by the patient.
--- NOTE | 2023-09-25 13:50 | PTOPDC ---
Assessment and note entered by Waldo Salmon, PT, DPT Evaluation Information Assessment Status Discharge Diagnosis R shoulder pain (M75.31) Onset 1 year Subjective Information Pt states his shoulder is feeling pretty good today. He states he reached behind his seat while during and across his body and both times he felt a large pop. He states the pop was slightly painful, like a 3-4/10. Reported Pain Level Pain Score 0: Self Report Assessment PT Clinical Summary Pt reports to therapy today for his progress report following 5 visits of skilled therapy to treat his diagnosis of R shoulder pain with tendonitis calcification. Today he demonstrates improved shoulder ROM and strength compared to his initial visit. He continues to have minor deficits compared to his L shoulder. Pts HEP was progressed and he plans to continue this on his own, he does not feel he needs to continue with therapy at this time. Plan of Care PT Services Indicated No
== END 2023-09-25 14:13 | disposition home or self-care (01) ==
LOC: ANHGOSHPT 13:00
PROVIDERS: PCP Physician Assistant; Visit Provider Physician Assistant Surgical
DX: M75.31 Calcific tendinitis of right shoulder (principal)
CPT/HCPCS: 97110; 97112; 97140; 97161; 97530

== ENCOUNTER 2023-10-16 07:47 | Outpatient (CLI) | payer OTHER, SELFPAY ==
--- NOTE | ~2023-10-16 | MR_ITS ---
MRI of the right shoulder Technique: Axial proton-density fat-sat images, coronal proton density fat-sat and T2 fat-sat images, and sagittal T1-weighted and T2 fat-sat images were acquired. Clinical History: Calcific tendinitis Findings: There is severe AC joint degenerative change with prominent bony productive change about th e joint. Coracoclavicular, coracoacromial, and coracohumeral ligaments are probably intact. There is advanced supraspinatus and infraspinatus tendinosis without partial or full-thickness tear. Small low signal foci the very anterior, distal supraspinatus tendon insertion are consistent with sm all areas of calcific tendinitis. Subscapularis tendon is intact. Tendon of long head of the biceps i s intact with probable severe intra-articular tendinosis. Probable degenerative change of the superior labrum without definite discrete, detached labral tear. Inferior glenohumeral ligament is intact. There is minimal glenohumeral joint effusion. No significan t degenerative change. No muscle atrophy or edema. Impression: Findings consistent with calcific tendinitis of the supraspinatus tendon, with small calcific deposit s at the very anterior, distal supraspinatus tendon insertion. Extensive rotator cuff tendinosis, as detailed above, without definite partial or full-thickness tear . Severe AC joint degenerative change. Reviewed, dictated and finalized at [facility]. TH CENTER MANAGER Impression: Findings consistent with calcific tendinitis of the supraspinatus tendon, with small calcific deposits at the very anterior, distal supraspinatus tendon inser tion. Extensive rotator cuff tendinosis, as detailed above, without definite partial or full-thickness tear. Severe AC joint degenerative change.
== END 2023-10-16 07:48 | disposition home or self-care (01) ==
LOC: ANHIMG 07:49
PROVIDERS: PCP Physician Assistant; Visit Provider Physician Assistant Surgical
DX: M75.31 Calcific tendinitis of right shoulder (principal)
CPT/HCPCS: 73221

== ENCOUNTER 2023-12-07 07:08 | Outpatient (CLI) | payer OTHER, SELFPAY ==
[2023-12-07 07:58] LABS: Alanine Aminotransferase 22 U/L (6-50); Albumin Level 4.7 g/dL (3.5-5.1); Alkaline Phosphatase 94 U/L (38-126); Anion Gap 7 mmol/L (8-16); Aspartate Amino Transferase 26 U/L (17-59); Bilirubin,Total 0.5 mg/dL (0.2-1.3); Blood Urea Nitrogen 24 mg/dL (9-20); Calcium 10.2 mg/dL (8.4-10.2); Carbon Dioxide 27 mmol/L (22-30); Chloride 104 mmol/L (98-107); Estimated Glomerular Filt Rate 56; Glucose 122 mg/dL (65-110); Potassium 4.4 mmol/L (3.4-5.0); Sodium 138 mmol/L (137-145)
[2023-12-07 10:12] LABS: Hemoglobin A1C 7.6 % (<5.7)
== END 2023-12-07 07:09 | disposition home or self-care (01) ==
LOC: ANHLAB 07:09
PROVIDERS: PCP Physician Assistant; Visit Provider Physician Assistant
DX: E11.9 Type 2 diabetes mellitus without complications (principal)
CPT/HCPCS: 36415; 80053; 83036

== ENCOUNTER 2024-06-16 07:07 | Outpatient (CLI) | payer OTHER, SELFPAY ==
[2024-06-16 07:49] LABS: Basophils Percent Auto 0.4 % (0.2-1.2); Eosinophils Absolute Auto 0.2 K/mm3 (0-0.3); Eosinophils Percent Auto 4.2 % (0-4.4); Hematocrit 43.9 % (42.0-52.0); Hemoglobin 14.8 g/dL (14.0-18.0); Immature Granulocyte Absolute 0.03 K/mm3 (0.00-0.031); Immature Granulocyte Percent A 0.6 % (0-0.5); Lymphocytes Absolute Auto 1.52 K/mm3 (0.9-3.2); Lymphocytes Percent Auto 31.8 % (18.3-44.2); Mean Corpuscular HGB Conc 33.7 g/dl (32-36); Mean Corpuscular Hemoglobin 30.1 pg (26-34); Mean Corpuscular Volume 89.2 fl (80-100); Mean Platelet Volume 9.6 fl (7.4-10.4); Monocytes Absolute Auto 0.3 K/mm3 (0.1-0.6); Monocytes Percent Auto 6.9 % (2.6-8.5); Neutrophils Absolute Auto 2.7 K/mm3 (1.3-6.7); Neutrophils Percent Auto 56.1 % (45.5-73.1); Platelet Count Result 190 k/mm3 (150-375); Red Blood Count 4.92 M/mm3 (4.6-6.20); Red Cell Distribution Width 12.6 % (11.5-14.5); White Blood Count 4.8 K/mm3 (4.5-10.0)
[2024-06-16 08:05] LABS: Alanine Aminotransferase 24 U/L (6-50); Albumin Level 4.6 g/dL (3.5-5.1); Alkaline Phosphatase 81 U/L (38-126); Anion Gap 11 mmol/L (4-12); Aspartate Amino Transferase 24 U/L (17-59); Bilirubin,Total 0.5 mg/dL (0.2-1.3); Blood Urea Nitrogen 13 mg/dL (9-20); Calcium 9.8 mg/dL (8.4-10.2); Carbon Dioxide 28 mmol/L (22-30); Chloride 99 mmol/L (98-107); Cholesterol 215 mg/dL (0-200); Estimated Glomerular Filt Rate > 60; Glucose 147 mg/dL (65-110); HDL Direct 46 mg/dL; Potassium 4.5 mmol/L (3.4-5.0); Sodium 138 mmol/L (137-145); Triglycerides 322 mg/dL (<150)
[2024-06-16 08:16] LABS: LDL Cholesterol Direct 106 mg/dL
[2024-06-16 08:26] LABS: Prostate Specific Antigen 2.9 ng/mL (< OR = 4.0)
[2024-06-16 09:01] LABS: Folic Acid 16.8 ng/mL (2.76->20)
[2024-06-16 09:54] LABS: Hemoglobin A1C 8.2 % (<5.7)
[2024-06-16 10:04] LABS: Creatinine Urine 34.6 mg/dL; MALB Creatinine Ratio 57.5 mg/g (0-30); Microalbumin Urine Random 19.9 mg/L (0-16.7)
== END 2024-06-16 07:08 | disposition home or self-care (01) ==
PROVIDERS: PCP Physician Assistant; Visit Provider Nurse Practitioner
DX: R53.83 Other fatigue (principal); E11.9 Type 2 diabetes mellitus without complications; Z12.5 Encounter for screening for malignant neoplasm of prostate; E53.8 Deficiency of other specified B group vitamins
CPT/HCPCS: 36415; 80053; 80061; 82043; 82607; 82746; 83036; 84153; 84443; 85025; G0103

== ENCOUNTER 2024-12-18 07:18 | Outpatient (CLI) | payer OTHER, SELFPAY ==
--- OUTSIDE RECORDS SUMMARY | 2024-12-18 07:20 | XMS_ITS | Continuity of Care Document ---
Author Name [facility] Organization [facility] Care Team Providers Care Baker Doughnut Name Role Phone [facility] Unavailable Unavailable Problems Combined list of problems from Department of Defense and [facility] facilities. It does not include entries that were removed or entered in error. Problem Status Onset Date Problem Type Date of Resolution Comments Source Nephrolithiasis Active 5 Condition [facility] Gout Active Condition [facility] Hyperlipidemia * (ICD-9-CM 272.4) Active Condition [facility] Impaired Fasting Glucose (ICD-9-CM 790.21) Active Condition [facility] Obesity * (ICD-9-CM 278.00) Active Condition [facility] Polyp of colon Active Condition May 082013 Entered By: Liset SINGH Comment: rtc 2022 [facility] Medications Combined list of outpatient medications from Department of Defense and [facility] facilities.Medications provided include 1) outpatient medications from the last 15 months, and 2) patient-reported medications. Medication Details Route Status Patient Instructions Prescription Expires Prescription Number Last Dispense Date Ordering Provider Order Date Order Qty Source ALLOPURINOL (ALLOPURINO L), 100MG, TABLET, ORAL, 'S LAB, 1000 ea. BOTTLE Active [id number] 4 2023 90 Pharmac y Data Trans[facility] tion Service Facilit y ALLOPURINOL 100MG TAB TAKE ONE TABLET BY MOUTH EVERY DAY ORAL ACTIVE IDA MOHR 2008 [facility] JARDIANCE (EMPAGLIFLO ZIN), 25 MG, TABLET, ORAL, BOEHRINGER ING., 30 ea. BOTTLE Active [id number] 4 2023 90 Pharmac y Data Transac tion Service Facilit y POTASSIUM CITRATE 5MEQ TAB,SA TAKE ONE TABLET BY MOUTH THREE TIMES A DAY ORAL ACTIVE IDA MOHR 2010 [facility] Immunizations Combined list of available immunizations from the Department of Defense and Veterans Affairs facilities. Immunization Series Date Given Administered By Site Reaction Lot Number CVX Code Drug Corporate Traffic Manager Status Comments Source INFLUENZA, UNSPECIFIED FORMULATION 2012 88 complet ed [facility] TDAP 2011 115 complet ed [facility] INFLUENZA, UNSPECIFIED FORMULATION 2010 88 complet ed [facility] TD(ADULT) UNSPECIFIED FORMULATION 2002 139 complet ed [facility] INFLUENZA (HISTORICAL) 2000 88 complet ed [facility] PNEUMOCOCCAL POLYSACCHARID E PPV23 1998 33 complet ed [facility] [place] [facility] TD(ADULT) UNSPECIFIED FORMULATION 1997 139 complet ed [facility] Social History Combined list of available smoking, tobacco, and other social history from Department of Defense and Veterans Affairs facilities. Social History Type Response Date Comment Sourc e Tobacco smoking status NHIS LIFETIME NON-TOBACCO USER 04/08 [facility] History of tobacco use LIFETIME NON-TOBACCO USER [facility] This section is an empty social history section. [employer]
[2024-12-18 08:09] LABS: Alanine Aminotransferase 18 U/L (6-50); Albumin Level 4.9 g/dL (3.5-5.1); Alkaline Phosphatase 83 U/L (38-126); Anion Gap 11 mmol/L (4-12); Aspartate Amino Transferase 21 U/L (17-59); Bilirubin,Total 0.5 mg/dL (0.2-1.3); Blood Urea Nitrogen 17 mg/dL (9-20); Calcium 10.1 mg/dL (8.4-10.2); Carbon Dioxide 28 mmol/L (22-30); Chloride 100 mmol/L (98-107); Cholesterol 141 mg/dL (0-200); Estimated Glomerular Filt Rate 51; Glucose 183 mg/dL (65-110); HDL Direct 50 mg/dL; Sodium 139 mmol/L (137-145); Triglycerides 322 mg/dL (<150)
[2024-12-18 08:20] LABS: LDL Cholesterol Direct 49 mg/dL
[2024-12-18 09:23] LABS: Hemoglobin A1C 9.1 % (<5.7)
== END 2024-12-18 07:19 | disposition home or self-care (01) ==
LOC: ANHLAB 07:18
PROVIDERS: PCP Internal Medicine; Visit Provider Nurse Practitioner
DX: E78.5 Hyperlipidemia, unspecified (principal); E11.9 Type 2 diabetes mellitus without complications
CPT/HCPCS: 36415; 80053; 80061; 83036

== ENCOUNTER 2025-04-02 07:20 | Outpatient (CLI) | payer OTHER, SELFPAY ==
[2025-04-02 08:26] LABS: Hemoglobin A1C 6.9 % (<5.7)
[2025-04-02 08:33] LABS: Cholesterol 149 mg/dL (0-200); HDL Direct 40 mg/dL; Triglycerides 275 mg/dL (<150)
[2025-04-02 08:46] LABS: LDL Cholesterol Direct 60 mg/dL
== END 2025-04-02 07:21 | disposition home or self-care (01) ==
LOC: ANHLAB 07:21
PROVIDERS: PCP Internal Medicine; Visit Provider Nurse Practitioner
DX: E78.5 Hyperlipidemia, unspecified (principal); E11.9 Type 2 diabetes mellitus without complications
CPT/HCPCS: 36415; 80061; 83036

== ENCOUNTER 2025-07-13 07:33 | Outpatient (CLI) | payer OTHER, SELFPAY ==
[2025-07-13 08:45] LABS: Hemoglobin A1C 6.7 % (<5.7)
[2025-07-13 08:51] LABS: MALB Creatinine Ratio 11.3 mg/g (0-30)
[2025-07-13 08:55] LABS: Alanine Aminotransferase 17 U/L (6-50); Albumin Level 4.3 g/dL (3.5-5.1); Alkaline Phosphatase 68 U/L (38-126); Anion Gap 8 mmol/L (4-12); Aspartate Amino Transferase 25 U/L (17-59); Bilirubin,Total 0.5 mg/dL (0.2-1.3); Blood Urea Nitrogen 31 mg/dL (9-20); Calcium 9.0 mg/dL (8.4-10.2); Carbon Dioxide 26 mmol/L (22-30); Chloride 105 mmol/L (98-107); Cholesterol 146 mg/dL (0-200); Estimated Glomerular Filt Rate 44; Glucose 137 mg/dL (65-110); HDL Direct 43 mg/dL; Potassium 4.6 mmol/L (3.4-5.0); Sodium 139 mmol/L (137-145); Total Protein 7.2 g/dL (6.3-8.2); Triglycerides 209 mg/dL (<150)
[2025-07-13 09:30] LABS: Prostate Specific Antigen 3.3 ng/mL (< OR = 4.0)
== END 2025-07-13 07:34 | disposition home or self-care (01) ==
LOC: ANHLAB 07:36
PROVIDERS: PCP Internal Medicine; Visit Provider Nurse Practitioner
DX: E78.5 Hyperlipidemia, unspecified (principal); Z12.5 Encounter for screening for malignant neoplasm of prostate; E11.9 Type 2 diabetes mellitus without complications
CPT/HCPCS: 36415; 80053; 80061; 82043; 83036; 84153; G0103